=== PATIENT | female | born 1970 | race Caucasian/White ===

== ENCOUNTER 2016-05-19 12:07 | Emergency (ER) | payer OTHER ==
[2016-05-19] MEDS ORDERED: DIPHENHYDRAMINE HCL 50 MG/1 ML VIAL ONE (13:24)
[2016-05-19] MEDS ORDERED: PROCHLORPERAZINE 5 MG/ML 2 ML VIAL ONE (13:24)
[2016-05-19] MEDS ORDERED: ACETAMINOPHEN 325 MG TABLET ONE (13:24)
[2016-05-19] MEDS ORDERED: LACTATED RINGERS 1,000 ML ONE (13:25)
[2016-05-19 13:35] LABS: ABSOLUTE NEUTROPHIL COUNT 10.1 K/mm3 (1.8-7.7); BASO % 0.2 % (0.2-1.0); EOS # 0.1 (0.0-0.5); EOS % 0.5 % (0.9-2.9); HEMATOCRIT 43.9 % (37.0-47.0); HEMOGLOBIN 14.4 gm/l (12.0-16.0); IMM NEUT% 0.3 % (0-1); LYMPH # 1.5 (1.0-4.8); LYMPH % 12.2 % (15-45); MEAN CELL VOLUME 84.1 fl (81.0-99.0); MEAN CORPUSCULAR HEMOGLOBIN 27.6 pg (27.0-31.0); MEAN CORPUSCULAR HGB CONC 32.8 g/dl (33.0-37.0); MEAN PLATELET VOLUME 10.4 fl (7.4-10.4); MONO # 0.4 (0.0-0.8); MONO % 3.1 % (4-12); NEUT % 83.7 % (43-75); PLATELET COUNT 271 K/mm3 (130-400); RED CELL DISTRIBUTION WIDTH 12.7 % (11.5-14.5)
[2016-05-19 13:50] LABS: TROPONIN I < 0.01 ng/ml (0.0-0.06)
[2016-05-19 13:53] LABS: CKMB ISOENZYME 1.1 ng/ml (0.6-6.3)
--- NOTE | 2016-05-19 14:14 | RAD ---
Exam: Two-view chest COMPARISON: None INDICATION: Headache, weakness and nausea and vomiting. FINDINGS: PA and lateral views of the chest were obtained. Cardiac silhouette is within normal limits. Lungs are well-inflated. There is no focal airspace disease or pleural effusion. Bones of the chest wall within normal limits. IMPRESSION: Negative two-view chest.
== END 2016-05-19 14:53 | disposition home or self-care (01) ==
LOC: ED 12:07
DX: R51 Headache (principal); R07.9 Chest pain, unspecified; I10 Essential (primary) hypertension; E05.00 Thyrotoxicosis with diffuse goiter without thyrotoxic crisis or storm